=== PATIENT | male | born 1940 | race Caucasian/White ===

== ENCOUNTER 2019-11-18 06:32 | Inpatient (IN) ==
--- NOTE | 2019-09-09 14:48 | Anesthesiology Consultation ---
Date of Service September 09, 2019 Assessment & Plan (1) Encounter for pre-operative examination: - Received hematology office visit note: 06/24/19: Hx malignant neoplasm of upper lobe, right bronchus or lung. Secondary polycythemia. Monthly CBC checks with plan for phlebotomy as needed for HCT greater than 53 ("phlebotomy 500mL whole blood with 500mL NSS IV replacement prn HCT >53"). Last phebotomy per patient was 06/2019. Preop labs HCT <53. F/U 6 months. - PCP office visit note: 08/18/19: "EKG, labs, urine and cxr are acceptable for surgery.. cleared for tka." - Check BSG AM DOS - ASA instructions: okay to continue perioperatively per surgeon. Chart Review Chart Review: Acceptable Risk for Surgery and Patient seen in Pre Admission Testing (08/10/19) History Surgery Operation Date: 10/14/19 10:20 Proposed Procedures p Right Total Knee Arthroplasty - Marco A Gann MD Height/Weight Height: 5 ft 7 in Weight: 95.393 kg Allergies Allergy/AdvReac Type Severity Reaction Status Date / Time No Known Allergies Allergy Verified 09/08/19 09:00 Medications Home Medications Medication Instructions Recorded Confirmed Last Taken aspirin 81 mg PO QAM 08/06/19 09/08/19 Unknown fenofibrate 160 mg PO HS 08/06/19 09/08/19 Unknown finasteride 5 mg PO QAM 08/06/19 09/08/19 Unknown losartan-hydrochlorothiazide 1 tab PO QAM 08/06/19 09/08/19 Unknown metformin 500 mg PO QPM 08/06/19 09/08/19 Unknown simvastatin 20 mg PO HS 08/06/19 09/08/19 Unknown Past Medical History Medical History (Updated 09/09/19 @ 14:58 by Elif Dove) Diabetes mellitus, type 2 NIDDM Elevated red blood cell count per patient, follows with heme/onc (Dr. Keith Palmer/Chris)- routine labs with occasional phlebotomy (last phlebotomy 08/22) History of bladder cancer History of lung cancer RUL s/p wedge resection Hyperlipemia Hypertension Obesity Osteoarthritis Renal mass under surveillance by heme/onc Sleep apnea CPAP Past Family History Family History Mother Diabetes Brother Diabetes Other No family history of adverse response to anesthesia Past Surgical History Surgical History History of amputation of finger Rt index finger History of biopsy of bladder History of bronchoscopy History of cataract surgery History of colonoscopy History of cystoscopy History of left knee replacement History of surgery TURBT History of surgery VATs procedure - RUL wedge resection History of tonsillectomy History of tooth extraction Social History Smoking Status: Former smoker tobacco type: cigarettes Smoking End Date: quit 8 years ago Hx Alcohol Use: Yes Alcohol type: beer alcohol intake frequency: a few times a month Hx Substance Use: No substance use type: does not use Physical Exam Vital Signs BP 168/91 P 72 TEMP 97.9 SP02 95%RA RESP 18 PHYSICAL Full neck and c-spine range of motion. Full TMJ range of motion. TMD 3 finger breaths Mallampati Score 2 Dentition: dentures partial upper/full lower Lungs: clear throughout to auscultation Cardiac: regular rate and rhythm, no murmurs noted Spine: normal Carotid arteries: negative bruit Extremities: no edema Testing Laboratory Results 08/09/19 WBC 6.90 H/H 17.8/52.7 PLATELETS 231 SODIUM 141 POTASSIUM 4.9 CHLORIDE 108 CO2 28 BUN 26 CREATININE 1.18 GLUCOSE 180 PT 11.0 PTT 24.1 INR 1.1 UA negative TYPE AND SCREEN B-Ab- Electrocardiogram Date: 08/09/19 NSR at 71bpm. Rightward axis. Chest X-Ray Date: 08/09/19 FINDINGS: The heart is normal in size. No pneumothorax. No pleural effusions. Suture material within the right hilum and right lung apex consistent with postoperative change. A few linear densities within the lung bases favor subsegmental atelectasis or scarring. Linear densities within the right suprahilar location also favor postoperative change/scarring. Mild interstitial thickening at the lung bases which is likely chronic. No evidence for pulmonary edema. IMPRESSION: Chronic and postoperative changes as described above. No acute abnormality within the chest.
--- NOTE | 2019-11-13 08:18 | History & Physical Report ---
Date of Service November 13, 2019 Assessment & Plan (1) Primary osteoarthritis of right knee: Treatment options were discussed. Patient has failed conservative measures as above. Risks, benefits and alternatives to surgery including but not limited to infection, DVT, pain, stiffness, need for revision surgery, damage to blood vessels, damage to nerves, PE, , were discussed with the patient and they wish to proceed. Plan will be for right total knee arthroplasty at [facility] on 11/18/19. Will plan on aspirin 81mg BID x 30 days post op for DVT prophylaxis. Will plan on HHPT once discharged. All questions answered. He will follow up post operatively. Current COVID status is unknown, has not been tested and is not symptomatic. History of Present Illness Chief Complaint: Right knee pain Primary Care Provider: Trish Marie PA-C 79 year old male with PMHx significant for HECTOR, HTN, DM2, high cholesterol, BPH, and bladder cancer presents with longstanding right knee pain. Previously has had left knee replacement about 8 years ago and has done well. He has continued pain in knee that is affecting his daily activities despite cortisone injections and antiinflammatories. He would like to proceed with right knee replacement. Patient denies headaches, sweats, fevers, chills, double vision, blurred vision, cough, sore throat, dysphagia, chest pain, sob, wheezing, n/v/d/c, numbness, tingling, fatigue, urinary symptoms, mood disorders. ROS positive for right knee pain and stiffness. Allergies Allergy/AdvReac Type Severity Reaction Status Date / Time No Known Allergies Allergy Verified 11/18/19 06:57 Home Medications Home Medications Medication Instructions Recorded Confirmed Type aspirin 81 mg PO QAM 08/06/19 11/16/19 History fenofibrate 160 mg PO HS 08/06/19 11/16/19 History finasteride 5 mg PO QAM 08/06/19 11/16/19 History losartan-hydrochlorothiazide 2 tab PO QAM 08/06/19 11/16/19 History metformin 500 mg PO QPM 08/06/19 11/16/19 History simvastatin 20 mg PO HS 08/06/19 11/16/19 History amlodipine 5 mg PO QAM 11/16/19 11/16/19 History Past Med/Surg History Medical History Diabetes mellitus, type 2 NIDDM Elevated red blood cell count per patient, follows with heme/onc (Dr. Keith Palmer/Chris)- routine labs with occasional phlebotomy (last phlebotomy 08/22) History of bladder cancer History of lung cancer RUL s/p wedge resection Hyperlipemia Hypertension Obesity Osteoarthritis Renal mass under surveillance by heme/onc Sleep apnea CPAP Surgical History History of amputation of finger Rt index finger History of biopsy of bladder History of bronchoscopy History of cataract surgery History of colonoscopy History of cystoscopy History of left knee replacement History of surgery TURBT History of surgery VATs procedure - RUL wedge resection History of tonsillectomy History of tooth extraction Family History Mother Diabetes Brother Diabetes Other No family history of adverse response to anesthesia Social History Preferred Language: Iraqi Communication Ability: Effective 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 Beliefs That Will Affect Care: None Current Living Situation: Spouse Other Information That Helps Us Care for You: No Feels Safe at Home: Yes Safety Concerns: Feels Safe At This Time Smoking Status: Former smoker Tobacco Type: cigarettes ; Do You Dip or Chew Tobacco: No ; Smoking End Date: quit 8 years ago ; Second Hand Exposure: No ; Tobacco Cessation Education Requested by Patient: No Hx Alcohol Use: Yes Alcohol type: beer Hx Substance Use: No Review of Systems All systems reviewed & are unremarkable except as noted in HPI & below Physical Exam Constitutional: well developed and well nourished; no acute distress Eyes: PERRL, conjunctivae normal, anicteric sclerae ENMT: external ear and nose normal, oropharynx normal Neck: trachea midline, no thyromegaly Respiratory: normal respiratory effort, lungs clear to auscultation Cardiovascular: RRR, no murmur, no edema Musculoskeletal: Right knee: ROM 3-125 with crepitus, varus deformity. Tenderness medial joint line. Stable to valgus and varus stress, positive Renae's Skin: no rashes, warm and dry Neurologic: patellar DTR's 2+ bilat, sensation intact Psychiatric: A+Ox3, euthymic affect Results & Data Diagnostic Findings Right knee: [id number] medial compartment with tricompartmental arthritic changes.
[~2019-11-18 06:32] MED LIST: ACETAMINOPHEN 500 MG TAB PO SCH; CEFAZOLIN 2000MG 2,000 MG/15 ML SYR IV SCH; CeleBREX 200 MG CAP PO SCH; FAMOTIDINE 20 MG TAB PO SCH; GABAPENTIN 300 MG CAP PO SCH; GENERAL ORDER PROBLEM SCH; LR 500ML BOLUS, THEN 15ML/HR IV SCH; METOCLOPRAMIDE HCL 10 MG TABLET PO SCH; ROPIVACAINE 0.5% HCL/PF 150 MG, BUPIVACAINE 0.5% MPF 30 ML, EPINEPHrine 30MG/30ML (OR U... INFIL SCH; TRANEXAMIC ACID 1,000 MG **IV Intra-op IV SCH; TRANEXAMIC ACID 1,000 MG **IV Pre-op IV SCH; dexAMETHasone 4 MG TAB PO SCH
[2019-11-18] MEDS ORDERED: BUPIVACAINE 0.5 % 5 MG/1 ML PF 10ML VIAL ONE (06:34)
[2019-11-18] MEDS ORDERED: ROPIVACAINE 0.5% 5 MG/ML 30 ML VIAL ONE (06:34)
--- NOTE | 2019-11-18 07:00 | History & Physical Bridge Note ---
Date of Service November 18, 2019 History & Physical Bridge Note I have examined the patient, reviewed the History & Physical and in the interval since the performance of the History & Physical I have noted the following changes of clinical significance: no changes noted
[2019-11-18] MEDS ORDERED: PROPOFOL IV EMULSION 10 MG/ML 20 ML VIAL IV ONE (07:14)
[2019-11-18] MEDS ORDERED: LIDOCAINE HCL 2% 2 ML VIAL/AMP(20MG/ML) INFIL ONE (07:14)
[2019-11-18] MEDS ORDERED: MIDAZOLAM HCL 1 MG/ML 2ML VIAL ONE (07:14)
[2019-11-18] MEDS ORDERED: BACITRACIN INJ 50,000 UNIT VIAL ONE (07:49)
[2019-11-18] MEDS ORDERED: ORTHO JOINT ANESTHETIC ONE (07:49)
[2019-11-18] MEDS ORDERED: PHENYLEPHRINE 100MCG/ML 5ML SYR ONE (09:56)
--- NOTE | 2019-11-18 10:33 | Operative Report ---
Post Operative Report Pre & Post Diagnosis Operation Date: 11/18/19 08:40 Pre-Op Diagnosis: Right Knee Osteoarthritis Post-Op Diagnosis: Right Knee Osteoarthritis I identified the patient and participated in the time-out.: Yes Procedure Operation Date: 11/18/19 08:40 Actual Procedures p Right Total Knee Arthroplasty(Right) - Marco A Gann MD Surgeon Marco A Gann MD Multimedia Designer Sanya Riley PA-C Estimated Blood Loss 20 Findings Consistent with Post-Op Diagnosis Specimens Bone and tissue Drains None Anesthesia Type MAC Spinal Regional Complications none Disposition Accompanied Patient To Recovery: No Disposition: Recovery Room Indications The patient is a 79-year-old male longstanding arthritic change in the right knee. Is [id number] in the apartment. He wishes to proceed with right total knee arthroplasty. Description of Procedure Risks benefits and alternatives of surgery including but not limited to infection, DVT, pain, stiffness, need for surgery, damage to blood vessels, damage to nerves or risks of anesthesia were discussed with the patient and they wished to proceed. The patient was identified and the laterality was confirmed and marked. They received a preoperative antibiotic as well as a spinal anesthetic and an abductor canal block. A well-padded tourniquet was applied and then the limb was prepped and draped in standard manner with ChloraPrep. The limb was exsanguinated and the tourniquet was inflated. I made a standard anterior incision. I sharply incised the skin then utilized Bovie electrocautery to achieve hemostasis. I made a medial parapatellar arthrotomy and mobilized the patella laterally. I then excised the anterior horns of the medial and lateral meniscus as well as the infrapatellar fat pad. I elevated a portion of the MCL off of the tibia. I then pinned into place a patient-matched distal femoral cutting guide and made my distal femoral resection. I then pinned into place the 5 in 1 femoral cutting guide. I made my anterior, posterior and chamfer cuts. I then excised the cruciates and the remaining portions of the menisci. I then pinned into place a patient- matched tibial cutting guide and made my tibial resection. I then pinned into place the tibial plate a utilizing alignment kyle to confirm rotation. I then cut for the post. Utilizing a lamina gameplay programmer and I then removed posterior osteophytes off the femur. I then placed a trial femur into position and cut for the trochlear component. I then sequentially trialed to size the polyethylene until there was good soft tissue balancing and range of motion. I then prepared the patella with a freehand cut utilizing sagittal saw. I sized and drilled for the patella. There was good tracking to the patella no lateral release was needed. All the trial components were removed. The deep tissues were anesthetized with an ortho mix solution. Then with Simplex HV with gentamicin cement, I cemented my definitive components. Definitive components, Acosta and Nephew Tessa 2: Femur 5 Tibia 5 Poly 11 Patella 35 oval A betadine soak was performed. The arthrotomy was closed with interrupted #1 Vicryl suture subcutaneous tissue was closed with interrupted 2-0 Vicryl suture. The skin was closed with with marlo. An Acticoat and Stanford dressing were placed. Sterile dressings were applied. All needle and sponge counts were correct at the end of the procedure patient was transferred to the PACU in stable condition without apparent complication. The PA-C was necessary for assistance with procedure for assistance in positioning, prepping, draping, retraction and closure. I attest to the content of the Intraoperative Record and any orders documented therein. Any exceptions are noted below.
--- NOTE | 2019-11-18 11:33 | XRay Report ---
XR knee RT 1 or 2V routine CLINICAL HISTORY: Surgical Post Op postoperative evaluation COMPARISON: None. DISCUSSION: Anatomic alignment posttotal right knee arthroplasty. Could contact between prosthetic an d underlying bone. Atelectatic bilateral stimulator is present. Expected postoperative soft tissue change. IMPRESSION: Anatomic alignment posttotal right knee arthroplasty. ACT 112: Negative or not required by law. The above report was generated using voice recognition software. It may contain grammatical, syntax or spelling errors. Electronically signed by: Richmond Miller M.D. 11/18/2019 11:32 AM
[2019-11-18] MEDS ORDERED: ATROPINE SULFATE 0.1 MG/ML 10ML SYR IV PRN (11:52)
[2019-11-18] MEDS ORDERED: ePHEDrine sulfate 50 MG/ML AMP IV PRN (11:52)
--- NOTE | 2019-11-18 11:53 | Anesthesiology Progress Note ---
Date of Service November 18, 2019 Anesthesia Post Procedure Vital Signs Vital Signs: Temp Pulse Pulse Resp BP Pulse Ox 11/18/19 11:50 67 18 103/55 L 95 11/18/19 11:35 36.5 C 72 20 96/57 L 95 11/18/19 11:25 73 21 101/57 L 94 11/18/19 11:15 73 20 94/51 L 94 11/18/19 11:08 36.2 C L 73 16 94/52 L 96 11/18/19 07:02 36.5 C 82 20 149/92 H 94 Pain Intensity Right Knee: Pain Intensity: 3 Transfer of Care Handoff Completed per policy Notes Mental Status: alert / awake / arousable Patient Amnestic to Procedure: Yes Nausea / Vomiting: adequately controlled Pain: adequately controlled Airway Patency, RR, SpO2: stable & adequate BP & HR: stable & adequate Hydration State: stable & adequate Anesthetic Complications: no major complications apparent
[2019-11-18] MEDS ORDERED: OXYCODONE HCL IR 5 MG TAB (IMMEDIATE RELEASE) PO PRN (13:26)
[2019-11-18] MEDS ORDERED: NALOXONE HCL 0.4 MG/1 ML VIAL/CARP IV PRN (13:26)
[2019-11-18] MEDS ORDERED: ONDANSETRON INJ 2 MG/ML 2 ML VIAL IV PRN (13:26)
[2019-11-18] MEDS ORDERED: HYDROmorphone INJ 0.5 MG/0.5 ML SYR IV PRN (13:26)
[2019-11-18] MEDS ORDERED: MAGNESIUM HYDROXIDE SUSP 30 ML UDC PO PRN (13:26)
[2019-11-18] MEDS ORDERED: bisacodyL 10 MG SUPP PR PRN (13:26)
[2019-11-18] MEDS ORDERED: PHARMACY GLYCEMIC MGMT CONSULT PRN (13:49)
[2019-11-18] MEDS ORDERED: GLUCAGON FOR INJ 1 MG VIAL IM PRN (14:00)
[2019-11-18] MEDS ORDERED: GLUCOSE 40% GEL 15 GM TUBE PO PRN (14:00)
[2019-11-18] MEDS ORDERED: CARBOHYDRATES FOR HYPOGLYCEMIA PO PRN (14:00)
[2019-11-18] MEDS ORDERED: INSULIN GLARGINE SOLOSTAR 100 UNITS/ML 3 ML PEN SC ONE ×2 (14:00)
[2019-11-18] MEDS ORDERED: GLUCOSE 10 TABS/TUBE PO PRN (14:00)
[2019-11-18] MEDS ORDERED: DEXTROSE 50% 50 ML SYRINGE IV PRN (14:00)
--- NOTE | 2019-11-18 14:05 | Pharmacy Report ---
Glycemic Control Consultation - Date of Service November 18, 2019 - Scope Scope: Glycemic Pharmacist consulted for glycemic control and to write orders per [facility] inpatient glycemic control protocol. - Objective Weight: 91.6 kg Accuchecks BSG (last 24hrs): 11/18/19 11/18/19 11/18/19 06:59 11:11 13:33 POC Glucose 120 H 133 H 173 H - Recent Pertinent Medications Outpatient Anti-diabetic Regimen: * metformin 500 mg qAM * A1c = 7.0 % 11/12/19 Risk Factors for Insulin Resistance: * Steroids: dexamethasone 8 mg PO x1 prior to surgery plus dexamethasone 4 mg topically * Recent Surgery: POD 0 * Diet: T2DM - Assessment & Plan Assessment & Plan: ASSESSMENT: * Mr Waldron is a 79 y/o M with a PMH of well controlled T2DM who presents for a TKA. He is maintained on one oral DM medication. * Fasting BSG this morning was 120 mg/dL. BSG prior to lunch was 173 mg/dL. He received dexamethasone 8 mg x 1 orally plus 4 mg topically. * Will provide patient with full-weight based stress of 2 Lantus for steroid - induced hyperglycemia as well as slightly higher fasting BSG. Expect patient will require some Lantus daily. * Will provide weight-based stress of 3 Novolog due to steroid hyperglycemia * Pt is maintained on oral antidiabetic agents as an outpatient * Oral agents are not recommended for inpatient use d/t drug interactions, changing PO intake, and difficulty titrating for acute hyper/hypoglycemia. ADA recommends re-initiating outpatient oral agents 1-2 days prior to discharge if/when appropriate if they were held on admission. * Will hold oral agents for admission and utilize SQ basal bolus insulin regimen which is the recommended regimen for inpatient glycemic control. * ADA & AACE recommend a goal blood sugar range 140-180 mg/dl for the majority of critically ill & non-critically ill patients. However, more stringent targets may be selected in individual cases. Will utilize more stringent goal of 110-140mg/dl based on patient age & comorbidities. Additionally, tighter glycemic control is warranted to facilitate wound/infection healing. PLAN FOR INPATIENT GLYCEMIC CONTROL: * Holding outpatient oral diabetes medications- plan to restart metformin tomorrow if renal function okay and dietary intake okay * Basal insulin * Lantus 30 units SQ x 1 * Bolus insulin * NovoLog per scale ACHS or Q6hrs while NPO * Goal Range: Low 1101 mg/dL - High 40 mg/dL * Correction Factor: 20 mg/dL/unit * Nutritional / Prandial insulin per carb ratio of 1 unit per 7 grams CHO consumed Discharge recommendations * Patient well controlled on his current regimen. * Could titrate upwards on metformin to maximize effects. Thank you.
[2019-11-18] MEDS: INSULIN ASPART 100 UNITS/ML 3 ML PEN SC SCH ×3 (14:36→21:24)
[2019-11-18] MEDS: SODIUM CHLORIDE 0.9% 1000ML 1,000 ML IV SCH (14:38)
[2019-11-18] MEDS: ACETAMINOPHEN 500 MG TAB PO SCH ×2 (14:41→20:19)
[2019-11-18] MEDS: FERROUS GLUCONATE 324 MG TAB PO SCH (17:48)
[2019-11-18] MEDS: CEFAZOLIN 2000MG 2,000 MG/15 ML SYR IV SCH (17:54)
[2019-11-18] MEDS: DOCUSATE SODIUM 100 MG CAP PO SCH (20:19)
[2019-11-18] MEDS: FENOFIBRATE NANOCRYSTALLIZED 145 MG TABLET PO SCH (20:19)
[2019-11-18] MEDS: SENNA 8.6 MG TAB PO SCH (20:20)
[2019-11-18] MEDS: SIMVASTATIN 20 MG TAB PO SCH (20:20)
[2019-11-19] MEDS: SODIUM CHLORIDE 0.9% 1000ML 1,000 ML IV SCH (00:11)
[2019-11-19] MEDS: CEFAZOLIN 2000MG 2,000 MG/15 ML SYR IV SCH (00:11)
[2019-11-19] MEDS: INSULIN ASPART 100 UNITS/ML 3 ML PEN SC SCH ×6 (00:30→20:58)
[2019-11-19 05:51] LABS: Hematocrit (blood only) 44.5 % (42-52); Hemoglobin 15.1 g/dL (14.0-18.0); Mean Corpuscular Hemoglobin 31.9 pg (25-34); Mean Corpuscular Hgb Conc 33.9 g/dL (32-36); Mean Corpuscular Volume 93.9 fL (80-100); Mean Platelet Volume 11.5 fL (7.4-10.4); Platelet Count 227 K/uL (130-400); RDW Coefficient of Variation 13.3 % (11.5-14.5); RDW Standard Deviation 46.1 fL (36.4-46.3); Red Blood Count 4.74 M/uL (4.7-6.1)
[2019-11-19 06:29] LABS: BUN Creatinine Ratio 23.9 (10-20); Calcium 7.6 mg/dl (8.5-10.1); Creatinine Clr Calc Pharmacy 36.2 ml/min; Est GFR (African American) 40.6; Potassium 4.1 mmol/L (3.5-5.1)
[2019-11-19] MEDS: ACETAMINOPHEN 500 MG TAB PO SCH ×3 (06:30→21:51)
[2019-11-19] MEDS ORDERED: SODIUM CHLORIDE 0.9% 1000ML 500 ML IV ONE (07:30)
--- NOTE | 2019-11-19 07:30 | Orthopedic Progress Note ---
Date of Service November 19, 2019 Assessment & Plan (1) Primary osteoarthritis of right knee: POD#1 Right TKA -PT/OT -DVT prophylaxis-ASA 81mg BID x 1 mo, SCDs, TEDs -Pain management -AM labs-Hemoglobin 15.1 this morning from 18 preop. Creatinine elevated to 1.8, will give bolus and recheck tomorrow -D/C planning-home with HHPT when stable, likely tomorrow. Admission and Anticipated Discharge Date Admission Date: November 18, 2019 Subjective Patient resting in bed comfortably, pain well controlled. No complaints, denies chest pain, sob, acuna, light headedness. Creatinine mildly elevated to 1.8 Review of Systems Review of Systems: All systems reviewed & are unremarkable except as noted in HPI & below Physical Exam Physical Exam: Right knee dressing is c/d/i, BERE in place. No calf tenderness, toes mobile, good dorsiflexion. Distally n/v status and sensation intact Constitutional: well developed and well nourished; no acute distress Results & Data ([facility]) Vital Signs (Past 12 Hours) Vital Signs Temp Pulse Resp BP Pulse Ox 11/19/19 04:02 36.5 C 58 L 18 120/67 95 11/18/19 23:38 36.5 C 66 22 124/67 90 Laboratory Results H & H 11/19/19 Range/Units 05:13 Hgb 15.1 (14.0-18.0) g/dL Hct 44.5 (42-52) %
[2019-11-19] MEDS: LOSARTAN/HCTZ 50/12.5MG TAB PO SCH (08:53)
[2019-11-19] MEDS: FINASTERIDE 5 MG TAB PO SCH (08:53)
[2019-11-19] MEDS: MULTIVITAMIN TAB PO SCH (08:54)
[2019-11-19] MEDS: FERROUS GLUCONATE 324 MG TAB PO SCH ×2 (08:54→17:53)
[2019-11-19] MEDS: ASPIRIN 81 MG ECTAB PO SCH ×2 (08:54→20:27)
[2019-11-19] MEDS: AMLODIPINE BESYLATE 5 MG TAB PO SCH (08:54)
[2019-11-19] MEDS: DOCUSATE SODIUM 100 MG CAP PO SCH ×2 (08:54→20:27)
--- NOTE | 2019-11-19 11:39 | Pharmacy Report ---
Glycemic Control Progress Note - Date of Service November 19, 2019 - Scope Glycemic Pharmacist consulted for glycemic control to write orders per [facility] inpatient glycemic control protocol. - Objective Accuchecks BSG(last 24 hours):: 11/18/19 11/18/19 11/18/19 13:33 17:10 20:54 Glucose POC Glucose 173 H 187 H 145 H 11/19/19 11/19/19 11/19/19 00:11 04:09 05:13 Glucose 117 H POC Glucose 125 H 124 H 11/19/19 08:08 Glucose POC Glucose 104 H - Recent Pertinent Medications The patient is currently receiving: * Basal insulin: Lantus 30 units SQ x 1 * Correctional Insulin: Novolog Correction per scale ACHS Goal Range: Low 110 mg/dL - High 140 mg/dL Correction Factor: 20 mg/dL/unit * Prandial insulin: Per carb ratio of 1 unit per 7 grams CHO consumed - Outpatient Anti-Diabetic Meds metformin 500 mg nightly - Assessment & Plan ASSESSMENT: * See progress note from 11/18/2019 for more background info, in short: * Pt receiving SQ basal bolus insulin regimen for hyperglycemia secondary to baseline DM (outpatient regimen on hold). Patient received dexamethasone orally yesterday. * Patient is currently receiving an average of 44 units of insulin per day * 30 units of basal insulin * 14 units of prandial/correctional insulin * BSGs ranging 120 - 187 mg/dl over the past 24hrs * Changes needed to insulin regimen: * AM Fasting BSG = 104 mg/dl. This is in goal range for patient based on inpatient targets and co-morbidities. Hold basal insulin for now due to kidney injury - may give additional dose if BSGs go above 180 mg/dL. * Post-prandial BSGs were in range yesterday but will loosen Novolog due to dissipating steroid effect. * Total daily dose = TBD * Additional notes / comments: hold metformin for today due to [place]. PLAN FOR INPATIENT GLYCEMIC CONTROL: * Oral Agents * Continue to hold outpatient oral diabetes medications. * Basal insulin * Hold for now * Bolus insulin * NovoLog per scale ACHS or Q6hrs while NPO * Goal Range: Low 110 mg/dL - High 140 mg/dL * Correction Factor: 25 mg/dL/unit * Nutritional / Prandial insulin per carb ratio of 1 unit per 8 grams CHO consumed RECOMMENDATIONS FOR DISCHARGE: * see note from 11/18/2019 Thank you.
[2019-11-19] MEDS: SENNA 8.6 MG TAB PO SCH (20:27)
[2019-11-19] MEDS: FENOFIBRATE NANOCRYSTALLIZED 145 MG TABLET PO SCH (20:28)
[2019-11-19] MEDS: SIMVASTATIN 20 MG TAB PO SCH (20:28)
[2019-11-19] MEDS ORDERED: METFORMIN HCL 500 MG TAB PO SCH (21:00)
[2019-11-20] MEDS: ACETAMINOPHEN 500 MG TAB PO SCH (06:24)
[2019-11-20 07:28] LABS: Calcium 8.6 mg/dl (8.5-10.1); Creatinine Clr Calc Pharmacy 51.8 ml/min; Est GFR (African American) 62.5; Est GFR (Non-African American) 53.9; Potassium 4.1 mmol/L (3.5-5.1)
[2019-11-20] MEDS: MULTIVITAMIN TAB PO SCH (08:46)
[2019-11-20] MEDS: LOSARTAN/HCTZ 50/12.5MG TAB PO SCH (08:46)
[2019-11-20] MEDS: DOCUSATE SODIUM 100 MG CAP PO SCH (08:47)
[2019-11-20] MEDS: FINASTERIDE 5 MG TAB PO SCH (08:47)
[2019-11-20] MEDS: AMLODIPINE BESYLATE 5 MG TAB PO SCH (08:47)
[2019-11-20] MEDS: FERROUS GLUCONATE 324 MG TAB PO SCH (08:48)
[2019-11-20] MEDS: ASPIRIN 81 MG ECTAB PO SCH (08:48)
[2019-11-20] MEDS: INSULIN ASPART 100 UNITS/ML 3 ML PEN SC SCH (08:51)
--- NOTE | 2019-11-20 09:06 | Orthopedic Progress Note ---
Date of Service November 20, 2019 Assessment & Plan (1) Status post right knee replacement: 79 yo male stable POD #2 s/p right TKA 1. Med management 2. DVT prophylaxis- ASA, SCDs 3. PT/OT 4. D/C planning- home w/ HH Admission and Anticipated Discharge Date Admission Date: November 18, 2019 Subjective Pt resting in chair, eating breakfast, denies complaints Physical Exam Physical Exam: BERE dressing in place, toes mobile NVI, calf soft Results & Data ([facility]) Vital Signs (Past 12 Hours) Vital Signs Temp Pulse Pulse Resp BP Pulse Ox 11/20/19 07:12 36.9 C 61 16 156/81 H 94 11/19/19 23:01 36.3 C L 60 18 144/75 H 90 Laboratory Results 11/20/19 11/20/19 11/19/19 Range/Units 08:36 06:48 20:48 Sodium 141 (136-145) mmol/L Potassium 4.1 (3.5-5.1) mmol/L Chloride 108 H (98-107) mmol/L Carbon Dioxide 29 (21-32) mmol/L Anion Gap 4.0 (3-11) BUN 37 H (7-18) mg/dl Creatinine 1.26 D (0.6-1.4) mg/dl Est Cr Clr Drug Dosing 51.8 ml/min Est GFR ( Amer) 62.5 Est GFR (Non-Af Amer) 53.9 BUN/Creatinine Ratio 29.0 H (10-20) Glucose 80 (70-99) mg/dl POC Glucose 80 91 (70-99) mg/dl Calcium 8.6 (8.5-10.1) mg/dl 11/19/19 11/19/19 Range/Units 17:12 13:09 Sodium (136-145) mmol/L Potassium (3.5-5.1) mmol/L Chloride (98-107) mmol/L Carbon Dioxide (21-32) mmol/L Anion Gap (3-11) BUN (7-18) mg/dl Creatinine (0.6-1.4) mg/dl Est Cr Clr Drug Dosing ml/min Est GFR ( Amer) Est GFR (Non-Af Amer) BUN/Creatinine Ratio (10-20) Glucose (70-99) mg/dl POC Glucose 102 H 124 H (70-99) mg/dl Calcium (8.5-10.1) mg/dl
[2019-11-20] MEDS ORDERED: METFORMIN HCL 500 MG TAB PO SCH ×2 (16:30→21:00)
--- NOTE | 2019-11-29 09:36 | Discharge Summary ---
Date of Service November 29, 2019 Admission HPI Per Admitting Provider 79 year old male with PMHx significant for HECTOR, HTN, DM2, high cholesterol, BPH, and bladder cancer presents with longstanding right knee pain. Previously has had left knee replacement about 8 years ago and has done well. He has continued pain in knee that is affecting his daily activities despite cortisone injections and antiinflammatories. He would like to proceed with right knee replacement. Patient denies headaches, sweats, fevers, chills, double vision, blurred vision, cough, sore throat, dysphagia, chest pain, sob, wheezing, n/v/d/c, numbness, tingling, fatigue, urinary symptoms, mood disorders. ROS positive for right knee pain and stiffness. Admission Exam Per Admitting Provider Constitutional: well developed and well nourished; no acute distress Eyes: PERRL, conjunctivae normal, anicteric sclerae ENMT: external ear and nose normal, oropharynx normal Neck: trachea midline, no thyromegaly Respiratory: normal respiratory effort, lungs clear to auscultation Cardiovascular: RRR, no murmur, no edema Musculoskeletal: Right knee: ROM 3-125 with crepitus, varus deformity. Tenderness medial joint line. Stable to valgus and varus stress, positive Renae's Skin: no rashes, warm and dry Neurologic: patellar DTR's 2+ bilat, sensation intact Psychiatric: A+Ox3, euthymic affect Principal Diagnosis DJD right knee Discharge Exam Pt resting in chair, eating breakfast, denies complaints Physical Exam Physical Exam: BERE dressing in place, toes mobile NVI, calf soft Results & Data ([facility]) Vital Signs (Past 12 Hours) Vital Signs Temp Pulse Pulse Resp BP Pulse Ox 11/20/19 07:12 36.9 C 61 16 156/81 H 94 11/19/19 23:01 36.3 C L 60 18 144/75 H 90 Discharge Data Allergies Allergy/AdvReac Type Severity Reaction Status Date / Time No Known Allergies Allergy Verified 11/18/19 06:57 Consultations 11/18/19 13:26 Consult Case Management - Discharge Planning Routine Procedures Performed Operation Date: 11/18/19 08:40 Actual Procedures p Right Total Knee Arthroplasty(Right) - Marco A Gann MD Ordered Studies 11/18/19 08:53 US - OR guided needle placemen Routine Hospital Course (1) Right knee DJD: Patient was admitted on the above-noted date and had the above-noted surgery performed which he tolerated well.On his first postoperative day, he was resting comfortably in bed. Pain was well controlled. He denied any chest pain, shortness of breath, lightheadedness. He had a mild elevation of his crea tinine to 1.8. Things were clean, dry, and intact. Calves were soft and nontender. Neurovascular is intact. Toes are mobile. Vital signs were stable. Hemoglobin was 15.1. He was started on PT and OT protocols. He was continued on DVT prophylaxis and pain management. He was given a bolus of IV fluids and plans were to recheck his creatinine the following day. On his second postoperative day, the patient was resting comfortably in a chair at the bedside. He was eating breakfast. Beer dressing was in place and intact. Calves are soft nontender. Neurovascular is intact. He was progressing with his physical therapy and remaining stable. Creatinine had dropped down to 1.2. Patient was progressing with his physical therapy and remaining stable and was felt he can be discharged home with home health services. Total Time Total Time Spent Total Time Spent (In Minutes): 5 Discharge Plan Discharge Items Patient Disposition: Home - Home Health Services Reason For Visit: Right Knee Osteoarthritis Discharge Diagnosis: right arthritis Activity: Per Instructions section Non-emergency contact: Surgeon Call non-emergency contact if: your pain is not controlled, your temperature is above 101.5, your wound has increased redness and your wound has increased drainage Follow-up/Referrals: Trish Marie PA-C [Primary Care Provider] - Diet: Carb Consistent or DM2 Addtl Attending Provider Instructions: ACTIVITY RECOMMENDATIONS: SELF CARE INSTRUCTIONS AFTER TOTAL KNEE REPLACEMENT A. You may need to continue a physical therapy program after discharge from the hospital. There are several options available to you. Your doctor will assist you in selecting the best one for you. 1. An out-patient facility 2 to 3 times a week for therapy or home therapy. 2. Continue working on all exercises taught to you in the hospital. Your goals should be to increase bending of your knee to 90 degrees and beyond and to fully straighten your knee. B. You may progress at your own pace from walking with a walker or crutches to a cane; then to no assistive devices. C. Make walking a part of your daily routine. Be up as much as comfortable with rest periods throughout the day. Rest with leg elevation is very important. Use the ice wrap frequently for the first 3-4 weeks. D. There are no restrictions on activities. You may ride in a car, shop, participate in supervisor mold construction and all social activities. E. Wear the long elastic stockings (DARLEEN hose) 20 hours a day for 2 weeks after surgery. They can be removed several times a day for laundering and for a bath. F. You may shower, no tub baths until cleared by your doctor. SPECIAL CARE INSTRUCTIONS: VERY IMPORTANT TO READ AND REVIEW A. There are a few signs you need to watch for after you are home. Call [facility] [place] if you notice any of the followin. Increased severe knee pain. Some pain is expected especially when you exercise. 2. Increased swelling in your leg or knee; pain or swelling of the calf muscle in either lower leg. 3. Any fluid drainage from the incision. 4. Shortness of breath or chest pain. B. Please call [facility] at if you have any concerns or questions about your operation or recovery. The doctor or his nurse will return your call promptly. C. You must take antibiotics before dental work, bladder, bowel or other surgery. Your doctor will provide you with a permanent care to carry describing this precaution. IMPORTANT: * REMEMBER TO TAKE ASPIRIN, 81 MG, TWICE DAILY FOR 4 WEEKS UNLESS OTHERWISE DIRECTED. THIS IS YOUR BLOOD THINNER. * HIGH RISK PATIENTS MAY BE PRESCRIBED A STRONGER BLOOD THINNER. THIS WILL BE PROVIDED AT DISCHARGE. * CALL IF INCREASED PAIN, REDNESS, DRAINAGE OR FEVER GREATER THAT 101. * WEAR DARLEEN HOSE 20 HOURS PER DAY FOR 2 WEEKS. This is a large suction dressing covering your incision. This will help pull any excess drainage from the wound and allow your incision to heal properly. You may shower with this if you can keep the unit outside of the shower. If any bleeding or leakage is noted please call your doctor's office. This will remain on your incision for 7 days and then should be removed. This can be done yourself or by the home nursing staff if applicable. The entire unit is disposable once removed. Once removed, keep incision clean and dry. If redness or drainage is noted, please call your surgeon. FOLLOW UP VISIT: If appointment is not already scheduled: Please call [facility] [place] to make a follow-up appointment for 2 weeks after your surgery at . Pending Studies at Discharge: No Stand-Alone Forms: [facility], [facility], Smoking Cessation Medications and DC Order Prescriptions: New aspirin 81 mg Tablet,Delayed Release (Dr/Ec) 81 mg PO BID 28 Days Qty: 56 RF: 0 acetaminophen 500 mg Tablet 1,000 mg PO Q8 14 Days Qty: 84 RF: 0 oxycodone 5 mg capsule 5 - 10 mg PO Q6 PRN (Reason: pain) Qty: 30 RF: 0 Continued metformin 500 mg Tablet 500 mg PO QPM RF: 0 fenofibrate 160 mg Tablet 160 mg PO HS RF: 0 amlodipine 2.5 mg Tablet 5 mg PO QAM RF: 0 Discontinued aspirin 81 mg Tablet,Delayed Release (Dr/Ec) 81 mg PO QAM RF: 0 simvastatin 20 mg Tablet 20 mg PO HS RF: 0 losartan-hydrochlorothiazide 50-12.5 mg Tablet 2 tab PO QAM RF: 0 finasteride 5 mg Tablet 5 mg PO QAM RF: 0 Discharge Orders: Discharge Order (Routine); Ordered 11/20/19 Ordered By: Nabor Umana/Other Patient Handouts: Knee How Works, Knee Replacement Total Dc Admission Data Admit Date/Time: 11/18/19 11:16 Attending Provider: Maroc A Gann Admit Provider: Marco A Gann Primary Care Provider: Trish Marie Other Providers: Aly Anderson ; Santosh Pinedo Other Interventions: Discharge Summary Assessment (RN) Last Done: 11/20/19 10:09 DC Date/Time DO NOT enter until pt leaves facility: 11/20/19 11:11
== END 2019-11-20 11:11 | disposition home health service (06) | DRG 470 ==
LOC: ASU 06:32 → 3E 11:16